=== PATIENT | male | born 1950 ===

== ENCOUNTER 2024-01-18 08:00 | Day surgery (SDC) | payer OTHER ==
[2024-01-12 15:42] VITALS: BP 112/73
[~2024-01-18 08:00] MED LIST: ARIPIPRAZOLE2 MG PO; HORIZANT300 MG PO; HYDROCHLOROTH12.5 M2 PO; KEPPRA XR750 MG PO; NORVASC2.5 MG PO
[2024-01-18] MEDS ORDERED: BUPIVACAINE HCL/MPF 0.5% 30ML VIAL ONE (09:09)
[2024-01-18] MEDS ORDERED: CEFAZOLIN SODIUM 1,000 MG VIAL ONE (09:11)
[2024-01-18] MEDS ORDERED: BUPIVACAINE HCL/PF 0.25% 30ML VIAL InF ONE (10:30)
[2024-01-18] MEDS ORDERED: CEFAZOLIN SODIUM 1,000 MG VIAL IV ONE (10:30)
[2024-01-18] MEDS ORDERED: MORPHINE SULFATE 2 MG/ML CARTRIDGE IV ONE (13:15)
== END 2024-01-18 14:55 | disposition home or self-care (01) ==
LOC: CIR.AMB 08:00
PROVIDERS: ATTEND Orthopaedic Surgery Hand Surgery
DX: M24.542 Contracture, left hand (principal); Z91.040 Latex allergy status

== ENCOUNTER 2024-05-02 06:40 | Day surgery (SDC) | payer OTHER ==
[2024-04-25 13:29] VITALS: BP 144/94
[~2024-05-02] VITALS: Ht 180.3 cm; Wt 122.5 kg
[~2024-05-02 06:40] MED LIST changes: +SILENOR3 MG PO
[2024-05-02] MEDS ORDERED: ISOPROPYL ALCOHOL 30 ML OUNCE TOP ONE (11:30)
[2024-05-02] MEDS ORDERED: BUPIVACAINE HCL 30 ML VIAL IJ ONE (11:30)
[2024-05-02] MEDS ORDERED: CEFAZOLIN SODIUM 1,000 MG VIAL IV ONE (11:30)
[2024-05-02] MEDS ORDERED: SUGAMMADEX SODIUM 200 MG/2 ML VIAL IV ONE (11:45)
[2024-05-02] MEDS ORDERED: MORPHINE SULFATE 4 MG/ML VIAL IV ONE ×3 (12:50→13:20)
[2024-05-02] MEDS ORDERED: MORPHINE SULFATE 2 MG/ML SYRINGE IV ONE (13:30)
== END 2024-05-02 17:40 | disposition home or self-care (01) ==
LOC: CIR.AMB 06:40
PROVIDERS: ATTEND Orthopaedic Surgery Hand Surgery
DX: M24.542 Contracture, left hand (principal); M25.542 Pain in joints of left hand; Z91.040 Latex allergy status; M19.042 Primary osteoarthritis, left hand